=== PATIENT | male | born 1985 | race Caucasian/White ===

== ENCOUNTER 2021-11-10 07:37 | Day surgery (SDC) | payer OTHER ==
[~2021-11-10] VITALS: Ht 172.7 cm; Wt 81.6 kg
[2021-11-10] MEDS ORDERED: MIDAZOLAM 5 MG/5 ML VIAL ONE (09:26)
[2021-11-10] MEDS ORDERED: fentaNYL citrate 0.05 MG/ML VIAL ONE (09:26)
[2021-11-10] MEDS ORDERED: MIDAZOLAM 2 MG/2 ML VIAL IVP ONE (13:05)
== END 2021-11-10 10:30 | disposition home or self-care (01) ==
LOC: MDS 07:37 → MMU 07:40 → MDS 10:30
PROVIDERS: ATTEND Internal Medicine Gastroenterology
DX: K21.9 Gastro-esophageal reflux disease without esophagitis (principal); K44.9 Diaphragmatic hernia without obstruction or gangrene; Z79.899 Other long term (current) drug therapy
CPT/HCPCS: 43235; J2250; J3010